=== PATIENT | female | born 1960 | race Caucasian/White ===

== ENCOUNTER 2025-07-04 07:00 | Day surgery (SDC) | payer OTHER ==
[2025-06-29 13:36] VITALS: BP 123/78
[2025-06-29 16:28] LABS: BUN CREA RATIO 17.0 (7.0-25.0); CREATININE SERUM 0.71 mg/dL (0.55-1.02); GFR 82.36; GLUCOSE FASTING 85.0 mg/dL (65-100); OSMOLALITY SERUM 286.0 MOSM/KG (275-295)
[~2025-07-04] VITALS: Ht 157.5 cm; Wt 67.6 kg
[~2025-07-04 07:00] MED LIST: ALLEGRA ALLERGY60 MG; LOSARTAN-HCTZ1 EAC2 PO; SINGULAIR10 MG PO; WELLBUTRIN XL300 MG PO; ZYRTEC10 M3 PO
[2025-07-04] MEDS ORDERED: CEFAZOLIN SODIUM 1,000 MG VIAL ONE (07:37)
[2025-07-04] MEDS ORDERED: POVIDONE-IODINE 118 ML BOTT TOP ONE (09:49)
[2025-07-04] MEDS ORDERED: ONDANSETRON HCL 2 MG/ML VIAL ONE (12:36)
[2025-07-04] MEDS ORDERED: ONDANSETRON HCL 2 MG/ML VIAL IV ONE (12:40)
[2025-07-04] MEDS ORDERED: TRAM1TAB98 PO (12:45)
[2025-07-04] MEDS ORDERED: ALBUTEROL SULFATE 3 ML/2.5 MG AMPUL.NEB IH ONE ×2 (13:11→13:20)
== END 2025-07-04 15:15 | disposition home or self-care (01) ==
LOC: CIR.AMB 07:00
PROVIDERS: ATTEND Obstetrics & Gynecology Gynecology
DX: D27.1 Benign neoplasm of left ovary (principal); D25.0 Submucous leiomyoma of uterus; Z88.6 Allergy status to analgesic agent; Z91.040 Latex allergy status